=== PATIENT | female | born 1950 | race Caucasian/White ===

== ENCOUNTER → 2017-08-27 | Outpatient (CLI) | payer MEDICARE ==
--- NOTE | 2017-08-29 11:37 | RADIOLOGY REPORT PS360 ---
BONE DENSITOMETRY(HIP:LT SPINE COMPARISON: DEXA scan 08/17/2014 HISTORY: Patient is postmenopausal TECHNIQUE: DEXA scanning lumbar spine and left hip FINDINGS: The areas BMD lumbar spine L1-L4 is 1.167 g centimeters square with T score of -0.1. This shows interval improvement from previous study at which time the T score is -1.1. The total BMD left hip is 0.993 g for centimeter squared the T score of -0.1. The left femoral neck is 0.961 g or centimeter square the T score -0.6. These values are basely unchanged from the previous study. IMPRESSION: Normal values for the lumbar spine and left hip resenting interval improvement from the previous study, consider follow-up study in 2 years
--- NOTE | 2017-09-01 08:01 | RADIOLOGY REPORT PS360 ---
DIG MAMM-SCREEN [facility]GA W/CAD CAD Screening COMPARISON: Digital mammograms 10/22/2014 and 01/06/2016 INDICATION: There is no personal or family history of breast cancer TECHNIQUE: Standard CC and MLO images were obtained. R2 CAD reviewed. FINDINGS: Minimal fibroglandular densities are seen in the central portions of both breasts in a background of fatty breast parenchyma. The findings are bilateral and symmetrical. There is no suspicious lesion and no suspicious microcalcifications. There are small nodes in both axilla. IMPRESSION: Stable exam with no suspicious lesion seen recommend yearly follow-up BI-RADS CATEGORY: 1_Negative RECOMMENDED FOLLOWUP: 12M 12 MONTH FOLLOW-UP (A letter has been sent to the patient regarding results of the study.)
== END ==
LOC: RAD 08-23 10:00
DX: M85.89 Other specified disorders of bone density and structure, multiple sites (principal); Z78.0 Asymptomatic menopausal state; Z13.820 Encounter for screening for osteoporosis; Z12.31 Encounter for screening mammogram for malignant neoplasm of breast; N60.11 Diffuse cystic mastopathy of right breast; N60.12 Diffuse cystic mastopathy of left breast
CPT/HCPCS: G0202